=== PATIENT | female | born 1960 | race Caucasian/White ===

== ENCOUNTER 2019-11-19 12:02 | Inpatient (IN) ==
[2019-11-19 13:02] LABS: BASO# 0.05 X1000 (0.0-0.2); BASO% 0.3 % (0.0-0.8); EOS% 1.9 % (0.0-10.0); HEMATOCRIT 36.8 % (37.0-47.0); HEMOGLOBIN 11.4 g/dL (12.0-16.0); IMM GRAN# 0.09 X1000 (0.0-0.04); IMM GRAN% 0.6 % (0.0-0.5); LYMPH# 4.32 X1000 (1.2-3.4); LYMPH% 27.8 % (20.5-51.1); MCH 28.9 PG (27-31); MCV 93.2 FL (81-99); MONO# 1.24 X1000 (0.11-0.59); MPV 10.2 FL (7.4-10.4); NEUT# 9.56 X1000 (1.4-6.5); NEUT% 61.4 % (42.2-75.2); PLT 443 X1000 (130-400); RBC 3.95 XMIL (4.2-5.4); RDW 13.2 % (11.5-14.5); WBC 15.56 X1000 (4.8-10.8)
--- NOTE | 2019-11-19 13:16 | Diag Imaging Result Doc PS360 ---
EXAM: CHEST-2 VIEWS HISTORY: shortness of breath TECHNIQUE: Two views COMPARISON: 10/11/2014 FINDINGS: The lungs are well expanded. The heart is not enlarged. The vessels are not distended. There are no infiltrates. No pleural effusions. Right lower lobe granuloma. Coronary artery stent. IMPRESSION: No acute abnormality. Electronically signed by Jamil Villarreal 11/19/2019 1:13 PM
[2019-11-19 13:45] LABS: ALB/GLOB RATIO 1.3; ALBUMIN 4.3 g/dL (3.5-5.0); CALCIUM 9.5 mg/dL (8.8-10.2); POTASSIUM 5.1 mmol/L (3.5-5.1); TOTAL BILIRUBIN 0.19 mg/dL (0.20-1.00); TOTAL PROTEIN 7.5 g/dL (6.3-8.3)
[2019-11-19] MEDS ORDERED: NS 1,000 ML IV ONE ×2 (15:38→16:42)
[2019-11-19 15:58] LABS: URINE SOURCE CLEAN CATCH
[2019-11-19 16:03] LABS: BILIRUBIN URINE NEGATIVE (NEGATIVE); BLOOD URINE NEGATIVE (NEGATIVE); COLOR YELLOW; GLUCOSE URINE >1000 mg/dL (NEGATIVE); KETONE URINE NEGATIVE (NEGATIVE); LEUKOCYTES URINE NEGATIVE (NEGATIVE); NITRITE URINE NEGATIVE (NEGATIVE); PH URINE 5.5; PROTEIN URINE TRACE mg/dL (NEGATIVE); SP GRAVITY URINE 1.018; TURBIDITY URINE CLEAR (CLEAR); UROBILINOGEN URINE NORMAL (NORMAL)
[2019-11-19 16:05] LABS: UR EPITHELIAL CELLS <10 /HPF (<10); URINE BACTERIA NEGATIVE /HPF; URINE RBC <10 /HPF (<10); URINE WBC <10 /HPF (<10)
--- NOTE | 2019-11-19 16:27 | PROVIDER DOCUMENTATION ---
This chart was entered by Netta Leigh Scribe, acting as scribe for Todd Leon DO. HPI-General Adult - General Chief Complaint: Shortness of Breath Stated Complaint: SOB, SHOULDER/BACK PAIN Time Seen by Provider: 11/19/19 12:38 Source: patient, family (daughter and ) Allergies/Adverse Reactions: Patient Allergies Allergy/AdvReac Type Severity Reaction Status Date / Time acetaminophen [From Lortab] Allergy NAUSEA/VOMI Verified 11/19/19 13:12 TING hydrocodone [From Lortab] Allergy NAUSEA/VOMI Verified 11/19/19 13:12 TING methylprednisolone Allergy NAUSEA/VOMI Verified 11/19/19 13:12 [From Medrol] TING Home Medications: Home Medication List Medication Instructions Recorded Confirmed Last Taken Type Alprazolam [Xanax] 0.25 mg PO PRN PRN 11/19/19 11/19/19 Unknown History Carvedilol [Coreg] 25 mg PO QHS 11/19/19 11/19/19 Unknown History Duloxetine [Cymbalta] 60 mg PO BID 11/19/19 11/19/19 Unknown History Fexofenadine [Chiquis] 180 mg PO DAILY 11/19/19 11/19/19 Unknown History LISINOpril [Prinivil] 5 mg PO DAILY 11/19/19 11/19/19 Unknown History Meclizine HCl 25 mg PO DAILY 11/19/19 11/19/19 Unknown History Pantoprazole Sodium [Protonix] 20 mg PO DAILY 11/19/19 11/19/19 Unknown History Rosuvastatin Calcium [Crestor] 5 mg PO DAILY 11/19/19 11/19/19 Unknown History Sitagliptin Phos/Metformin HCl 1 tab PO BID 11/19/19 11/19/19 Unknown History [Janumet 50-1,000 mg Tablet] Tramadol [Ultram] 50 mg PO PRN PRN 11/19/19 11/19/19 Unknown History Zolpidem [Ambien] 5 mg PO PRN PRN 11/19/19 11/19/19 Unknown History - History of Present Illness -Gen Adult Nature of Presenting Problems: Pt is a 59 yowf with c/o of SOB and back pain between her shoulder blades that started last Thursday. Pt states she went to walk-in clinic on Thursday for "crud" and then to PCP on and symptoms have not gotten better. Pt states she cannot hardly do anything without feeling SOB. Pt is alert and nontoxic in appearance. Location of Pain/Injury: reports: chest Pain Radiation: reports: no radiation, back (pt states pain comes straight thru to between her shoulder blades) Quality of Pain: reports: aching, tightness Severity: reports: moderate Onset/Duration: reports: gradual, last week Timing: reports: still present, constant, getting worse Context/Activities at Onset: reports: light activity Modifying Factors: improves with: lying down. worse with: movement Associated Symptoms: reports: back/neck pain, chest pain, shortness of breath, weakness. denies: cough, dizziness, fever/chills, syncope Similar Symptoms Previously?: Yes (Pt states that she has had these symptoms before ) Recently seen or treated by another doctor?: Yes (walkin clinic Thursday, PCP ) Review of Systems - Adult - REVIEW OF SYSTEMS - ADULT Constitutional: denies: chills, fever Eyes: reports: no symptoms reported Ears, Nose, Mouth & Throat: reports: no symptoms reported Cardiovascular: reports: see HPI, chest pain. denies: syncope Respiratory: reports: see HPI, shortness of breath. denies: cough, wheezing Gastrointestinal: reports: no symptoms reported Genitourinary: reports: no symptoms reported Musculoskeletal: reports: see HPI, back pain (between shoulder blades) Integumentary: reports: no symptoms reported Neurological: reports: no symptoms reported Psychiatric: reports: no symptoms reported Endocrine: reports: no symptoms reported Hematologic/Lymphatic: reports: no symptoms reported Allergic/Immunologic: reports: no symptoms reported All Other Systems: Reviewed and Negative Past History - Adult - PAST MEDICAL HISTORY-ADULT Review of Records: reports: Old Records Reviewed, Nursing Assessment Review, Med ications Reviewed, Social history reviewed & non-contributory. Major Childhood Illnesses: reports: denies history Cardiovascular: reports: HTN, hyperlipidemia, [place] Respiratory: reports: denies history Gastrointestinal: reports: denies history Genitourinary: reports: kidney disease Musculoskeletal: reports: denies history Neurological: reports: denies history Endocrine/Immune: reports: denies history, Diabetes Other Conditions: reports: denies history - IMMUNIZATION STATUS Childhood Immunizations: See Nurse Assessment Flu Vaccine: See Nurse Assessment - FAMILY HISTORY Family History: reviewed, not pertinent - SOCIAL HISTORY Smoking: non-smoker Substance Use: denies Living Situation: family () Physical Exam-General - PHYSICAL EXAM-ADULT Initial Vital Signs Reviewed: Yes (HR 104; Temp 97.2; O2 89L RA) - CONSTITUTIONAL General Appearance: appears well, alert, no apparent distress, thin - EYES Eyes: PERRL/EOMI, pink conjunctivae - HEAD, EARS, NOSE, MOUTH & THROAT HENMT: normocephalic/atraumatic, moist mucous membranes, normal ENT inspection, TMs normal, pharynx normal - NECK Neck: non-tender, full range of motion, supple, normal inspection - RESPIRATORY Respiratory: chest non-tender, lungs clear, normal breath sounds, no pleuratic chest pain, no respiratory distress, no accessory muscle use. negative: wheezing - CARDIOVASCULAR Cardiovascular: normal peripheral pulses, tachycardia - GASTROINTESTINAL (ABDOMEN) Abdominal Exam: normal bowel sounds, non tender, soft, no organomegaly, no pulsatile mass - LYMPHATIC Lymphatic: no adenopathy - MUSCULOSKELETAL Back Exam: normal inspection, no CVA tenderness, no vertebral tenderness Extremity: normal range of motion, non-tender, normal gait, normal inspection, no pedal edema, no calf tenderness - SKIN Integumentary: normal color, normal turgor, warm/dry - NEUROLOGIC Neurologic: grossly normal - PSYCHIATRIC Psych/Mental Status: normal mood/affect, normal thought content, normal thought process, oriented x 3 Progress - PLAN OF CARE/RESULTS Progress/Plan/Lab Results: Vital Signs - 8 hr 11/19/19 12:13 Temperature 97.2 F L Pulse Rate 104 H Respiratory Rate 22 Blood Pressure 71/52 O2 Sat by Pulse Oximetry 89 L Laboratory Results - last 24 hr 11/19/19 12:30 WBC 15.56 H RBC 3.95 L Hgb 11.4 L Hct 36.8 L MCV 93.2 MCH 28.9 MCHC 31.0 L RDW Std Deviation 13.2 Plt Count 443 H MPV 10.2 Immature Gran % (Auto) 0.6 H Neut % (Auto) 61.4 Lymph % (Auto) 27.8 [place] % (Auto) 8.0 Eos % (Auto) 1.9 Baso % (Auto) 0.3 Immature Gran # (Auto) 0.09 H Neut # (Auto) 9.56 H Lymph # (Auto) 4.32 H Anson # (Auto) 1.24 H Eos # (Auto) 0.30 Baso # (Auto) 0.05 Orders Category Date Time Status Cardiac Monitoring DIRECTED Care 11/19/19 12:57 Active IV Insertion ORDERED Care 11/19/19 12:57 Active Notify MD of + Sepsis Screen NOW Care 11/19/19 12:57 Active Notify Physician As Ordered Care 11/19/19 12:57 Active CHEST-2 VIEWS [RAD] Stat Exams 11/19/19 12:46 Taken BLOOD CULTURE [BLDCUL] Stat Lab 11/19/19 12:57 Uncollected CBC WITH ELECTRONIC DIFF [HEME] Stat Lab 11/19/19 12:30 Completed CK PROFILE [SP CHEM] Stat Lab 11/19/19 12:30 Received COMPREHENSIVE METABOLIC PANEL [CHEM] Stat Lab 11/19/19 12:30 Received LACTATE, PLASMA [CHEM] Q3H Lab 11/19/19 13:00 Uncollected LACTATE, PLASMA [CHEM] Q3H Lab 11/19/19 16:00 Uncollected LACTATE, PLASMA [CHEM] Q3H Lab 11/19/19 19:00 Uncollected PRO B-NATRIURETIC PEPTIDE Stat Lab 11/19/19 12:30 Received TROPONIN T HIGH SENSITIVITY Stat Lab 11/19/19 12:30 Received URINALYSIS W/POSS RFLX CULT [URINALYSIS] Stat Lab 11/19/19 12:57 Uncollected Oxygen Device Stat Oth 11/19/19 12:57 Active Result Diagrams: 11/19/19 12:30 11/19/19 12:30 - REASSESSMENT Reassessment #1 Time Reassessed: 16:08 Status: unchanged (heart score =5) Reassessment #2 Time Reassessed: 16:09 Status: unchanged Reassessment Comment: at bedside discussing POC - EKG 1 Time of EKG reading by physician:: 12:30 EKG Read and Signed by:: Todd Leon EKG Interpretation (*Must complete 3 of following elements*): Abnormal Rate: 101 Rhythm: Sinus tachycardia [place]: normal Comments: Cannot rule out Anterior infarct, age undetermined - XRAY 1 XRAY Study: Chest Impression: See EMR Report (EXAM: CHEST-2 VIEWS HISTORY: shortness of breath TECHNIQUE: Two views COMPARISON: 10/11/2014 FINDINGS: The lungs are well expanded. The heart is not enlarged. The vessels are not distended. There are no infiltrates. No pleural effusions. Right lower lobe granuloma. Coronary artery stent. IMPRESSION: No acute abnormality. Electronically signed by Jamil Villarreal 11/19/2019 1:13 PM 11/19/19 1313 Interpreting Physician: Jamil Villarreal MD Dictated Date/Time: 11/19/19 1313 cc: Todd Leon DO; Elisa Retana) - CONSULTS/PCP/HOSPITALIST Notification #1 *Consult/PCP/Hospitalist*: Radha Time Discussed: 16:15 Consult Disposition: Admit (Dr. Waggoner) Departure - Departure Date of Disposition Decision: 11/19/19 Time of Disposition Decision: 16:27 DIAGNOSIS: Exertional shortness of breath Disposition: ADMITTED INPATIENT 09 Certified Medical Emergency: Emergent Condition: Fair Referrals and Follow-Ups: Elisa Retana [Primary Care Provider] - - Critical Care Note This patient required my direct & personal management of CC.: No Attestation - Physician/ MOSHE Attestation Patient care was provided by Advanced Practice Provider:: No The physician spent face to face time with patient:: Yes Advanced Practice Provider documentation review:: Supervising physician onsite and consulted in the evaluation and care of this patient. The physician did have a face to face encounter with the patient. This chart was documented by the indicated scribe, (Netta Leigh, Chintan) and accurately reflects the services I performed and decisions made by , Todd Leon DO, as attested by the provider's signature.
[2019-11-19] MEDS ORDERED: LOVENOX 1 MG/KG SUBQ ONE (16:41)
[2019-11-19] MEDS ORDERED: ZITHROMAX 500 MG/NS 500 MG/250 ML IVPB IV ONE (16:44)
[2019-11-19] MEDS ORDERED: ROCEPHIN 1 GM in NS 50 ML IV SCH (16:45)
[2019-11-19] MEDS ORDERED: LOVENOX SUBQ ONE (17:00)
[2019-11-19 17:03] LABS: ALLEN TEST YES; BE -10.5 mmoll (-3.0-3.0); BLOOD TYPE ARTERIAL; HCO3-(ACT) 16.7 mmoll (20.0-26.0); METHB 1.1 % (0.0-1.5); O2(CT) 13.6 mL/dL (15.0-23.0); O2HB 96.9 % (95.0-99.0); PCO2(98.6) 35 mmHg (35-45); PO2(98.6) 124 mmHg (60-100); SAMPLE BLOOD; SAO2 99.2 % (95.0-100.0); THB 9.8 g/dL (11.5-17.4); pH(98.6) 7.26 (7.35-7.45)
[2019-11-19 17:10] LABS: MODALITY CANNULA
[2019-11-19] MEDS ORDERED: NEO-SYNEPHRINE 50 MG in NS 250 ML IV SCH (18:17)
[2019-11-19] MEDS ORDERED: ZOFRAN IV PRN (18:17)
[2019-11-19] MEDS: NS 1,000 ML IV SCH ×3 (18:24→23:33)
--- NOTE | 2019-11-19 19:22 | Diag Imaging Result Doc PS360 ---
EXAM: LUNG SCAN / VQ HISTORY: r/o PE TECHNIQUE: Nuclear medicine ventilation/perfusion lung scan COMPARISON: X-ray performed earlier FINDINGS: 40.4 mCi DTPA given for the ventilation images. 5.8 mCi MAA given intravenously for the perfusion images. No wedge shaped perfusion defects. No ventilation perfusion mismatches. IMPRESSION: No evidence of a pulmonary embolus. Electronically signed by Jamil Villarreal 11/19/2019 7:19 PM
[2019-11-19] MEDS: CRESTOR PO SCH (20:27)
[2019-11-19] MEDS: CYMBALTA PO SCH (20:28)
[2019-11-19] MEDS: SODIUM BICARBONATE 8.4% 150 MEQ in STERILE WATER INJ. 1,000 ML IV SCH (20:28)
--- NOTE | 2019-11-19 20:42 | HISTORY AND PHYSICAL ---
PRIMARY CARE PROVIDER: Dr. Elisa Retana. CHIEF COMPLAINT: Shortness of breath and pain in between shoulder blades. HISTORY OF PRESENT ILLNESS: Ms. Esparza is a pleasant 59-year-old female who carries a past medical history most notable for coronary artery disease status post 2 MIs with 7 stents, diabetes mellitus, hypertension, hyperlipidemia, and GERD with a strong family history of heart disease and a mother with a clotting disorder. She came to the ED complaining of a couple weeks of shortness of breath that continued to worsen, especially upon exertion. She has to stop and after rest short distances. It is not really associated with any chest-type pain, but she did start noticing a sharp pain between her shoulder blades. She did report that she has had some congestion going on for about a month. She had been treated with some antibiotics and some steroids last week and had a fever of 101. She had been to the walk-in clinic as well as her primary care provider. She had been diagnosed with some fluid in her ears and was having some issues with dizziness and was given some meclizine, an antibiotic and some steroids. She had 2 falls, 1 last Thursday and 1 on Thursday. She reported this morning she got up, and she ate some cardoza, and while it was going down, she just got this sensation that would not go away. It was hard for her to describe. It was not that it really got stuck or hung, or that she could really describe as chest-type pain, but she did have to go lie down to get relief from it, and at the urging of her family she was brought in to the emergency room, where she was found to be hypoxic with O2 saturation of 89%. She was hypotensive, 70 over 50s, and tachycardic. Her chest x-ray was completely negative. Her white count was 15; however, she has been on steroids. Her creatinine is 3, and in August, it was 1.5. Urinalysis is clean. Acetone level is negative. We are going to rule her out for PE and continue to trend her cardiac enzymes. They are currently negative. We will go ahead and give her 1 dose of full-dose Lovenox and prophylactically cover her with antibiotics. She is getting 1 fluid bolus in the ED. We will go ahead and give her a second liter of fluid and continue IV fluids overnight as well as check a CT of her chest to rule out any pneumonia, and we are awaiting her ABG. We will monitor in the ICU. She has continued to have low blood pressures while she has been in the ED. She has had some improvement with her bolus of IV fluids. We will continue with further management and treatment. PAST MEDICAL HISTORY: Coronary artery disease status post 2 MIs with 7 stents, diabetes mellitus, hypertension, hyperlipidemia, GERD. PAST SURGICAL HISTORY: Right carpal tunnel, tubal ligation, hysterectomy, breast reduction. FAMILY HISTORY: Father of [place]. Mother had respiratory arrest and cardiac arrest secondary to a clot. I believe she had previous clots as well and was on blood thinners. ALLERGIES: To acetaminophen, hydrocodone and Medrol Dosepak. HOME MEDICATIONS: 1. Xanax 0.25 mg p.o. p.r.n. anxiety. 2. Coreg 25 mg p.o. at bedtime. 3. Cymbalta 60 mg p.o. b.i.d. 4. Chiquis 180 mg p.o. daily. 5. Prinivil 5 mg p.o. daily. 6. Meclizine 25 mg p.o. daily. 7. Protonix 20 mg p.o. daily. 8. Crestor 5 mg p.o. daily. 9. Janumet-metformin combo 50-1000 mg 1 tab p.o. b.i.d. 10. Ultram 50 mg p.o. p.r.n. 11. Ambien 5 mg p.o. p.r.n. sleep. REVIEW OF SYSTEMS: Twelve-point review of systems completely negative except for those mentioned above in HPI. There is no headache. No abdominal pain, nausea, vomiting, or diarrhea. PHYSICAL EXAMINATION: VITAL SIGNS: Temperature is 97.2, heart rate 103, respirations 20, blood pressure 197/56, O2 currently 100% on 2 L nasal cannula. GENERAL: Ms. Esparza is a pleasant 59-year-old female who is sitting up in the bed in no acute distress. HEENT: Atraumatic, normocephalic. PERRL. Mucous membranes are extremely dry. NECK: Supple. Trachea midline. CARDIOVASCULAR: S1, S2 appreciated. No murmurs, gallops, or rubs noted. RESPIRATORY: Lung sounds clear bilaterally. CARDIOVASCULAR: S1, S2 appreciated. No murmurs, gallops, or rubs noted. Bilateral pedal pulses are palpable. Has good capillary refill. SKIN: Dry. Poor turgor. NEUROLOGIC: No focal deficits noted. GI: Soft, nontender, nondistended. Positive bowel sounds in 4 quadrants. DIAGNOSTIC DATA: Chest x-ray: No acute abnormality EKG is pending. LABORATORY DATA: White count is 15, hemoglobin and hematocrit 11 and 36, platelet count is 443. Sodium 135, potassium 5.1, carbon dioxide 17, anion gap 18, BUN 60, creatinine 3.0, blood glucose 164, phosphorus 4.3. Plasma lactate 1.4. Troponin 14, CK 34. ProBNP is 204. Albumin 4.3. Urine is negative for bacteria, negative for leukocytes, negative for nitrites, greater than 1000 glucose, trace protein. Tox screen negative for acetone. ASSESSMENT AND PLAN: 1. Hypoxia upon arrival, improved with supplemental O2. 2. Dyspnea on exertion , currently ruling out pulmonary embolism as well as pneumonia. I will do a V/Q scan secondary to her kidney function. I will do a CT of the chest. Her chest x-ray did not show anything acute. She was recently being treated for, I believe, upper respiratory issues and congestion with antibiotics and steroids, so we will treat prophylactically for pneumonia until proven otherwise, and continue with supplemental O2. We will go ahead and give her 1 full dose of Lovenox. Given her kidney function today, that should only be every 24 hours. Currently pending an arterial blood gas. 3. Atypical-type chest pain this morning. We will go ahead and rule out with cardiac enzymes. She does have a strong history of coronary artery disease status post myocardial infarctions with 7 stents. Again, she has been covered with full-dose Lovenox. We will obtain an echocardiogram in the morning. 4. Hypotension, somewhat improved with her first fluid bolus. We will continue with her second fluid bolus. 5. Acute kidney injury on chronic kidney disease, possibly secondary to dehydration. She is getting a 2 L bolus now, and we will continue to hydrate her overnight. We will recheck her kidney function in the a.m. We will hold her lisinopril and her combination Janumet. 6. Triple acidosis (Metabolic, Respiratory, Anion-gap). Bicarb drip started will repeat ABG in am. 7. Diabetes mellitus with hyperglycemia. We will place her on sliding scale with pattern blood sugars. 8. Leukocytosis. Unsure if this is from recent steroids or actual infection; however she will be treated prophylactically until proven otherwise. 9. Hyperlipidemia. Continue statin. We will check a lipid profile. 10. Gastroesophageal reflux disease. Continue proton pump inhibitor. 11. Further recommendations to follow physician evaluation, laboratory and diagnostic data. Dictated by FERNANDO Ruiz for Pb Sherman MD cc: Elisa Retana MD Patient with apparent hypoxia on presentation although sats looked ok at the time of my exam. also with hypotension which appears to be improving with fluids. good capillary refill on exam. will rule out pneumonia and PTE, give single dose of lovenox until that is determined, and continue IVF resuscitation. MTDD
[2019-11-20] MEDS: PRILOSEC PO SCH (06:00)
[2019-11-20] MEDS: NS 1,000 ML IV SCH ×3 (06:03→20:55)
[2019-11-20] MEDS: SODIUM BICARBONATE 8.4% 150 MEQ in STERILE WATER INJ. 1,000 ML IV SCH (06:03)
[2019-11-20 06:22] LABS: ALLEN TEST YES; BE -0.9 mmoll (-3.0-3.0); BLOOD TYPE ARTERIAL; HCO3-(ACT) 24.3 mmoll (20.0-26.0); O2(CT) 12.7 mL/dL (15.0-23.0); PCO2(98.6) 35 mmHg (35-45); PO2(98.6) 85 mmHg (60-100); SAMPLE BLOOD; SAO2 100.3 % (95.0-100.0); THB 9.1 g/dL (11.5-17.4); pH(98.6) 7.43 (7.35-7.45)
[2019-11-20 06:23] LABS: MODALITY ROOM AIR
[2019-11-20 07:13] LABS: BASO# 0.03 X1000 (0.0-0.2); BASO% 0.3 % (0.0-0.8); EOS# 0.24 X1000 (0.0-0.7); EOS% 2.8 % (0.0-10.0); HEMATOCRIT 32.1 % (37.0-47.0); HEMOGLOBIN 9.8 g/dL (12.0-16.0); IMM GRAN# 0.05 X1000 (0.0-0.04); IMM GRAN% 0.6 % (0.0-0.5); LYMPH# 3.77 X1000 (1.2-3.4); LYMPH% 43.4 % (20.5-51.1); MCH 28.7 PG (27-31); MCHC 30.5 g/dL (33-37); MCV 94.1 FL (81-99); MONO# 0.88 X1000 (0.11-0.59); MONO% 10.1 % (1.7-9.3); MPV 9.8 FL (7.4-10.4); NEUT# 3.72 X1000 (1.4-6.5); NEUT% 42.8 % (42.2-75.2); PLT 305 X1000 (130-400); RBC 3.41 XMIL (4.2-5.4); RDW 13.2 % (11.5-14.5); WBC 8.69 X1000 (4.8-10.8)
--- NOTE | 2019-11-20 07:15 | Diag Imaging Result Doc PS360 ---
EXAM: CHEST-PORTABLE - 11/20/2019 HISTORY: follow up TECHNIQUE: Portable chest COMPARISON: 11/19/2019 FINDINGS: Heart size is normal. Inspiration is mildly shallow. There is stable right lower lobe granuloma from old granulomatous disease. The lungs otherwise appear clear. There is no pleural effusion or pneumothorax identified. IMPRESSION: Mildly shallow inspiration. No other evidence of acute disease. Electronically signed by Han Gonzalez 11/20/2019 7:12 AM
[2019-11-20 07:27] LABS: AGAP 12; ALB/GLOB RATIO 1.3; ALBUMIN 3.4 g/dL (3.5-5.0); ALKALINE PHOSPHATASE 101 U/L (32-104); BUN 36 mg/dL (8-22); CALCIUM 8.1 mg/dL (8.8-10.2); CHLORIDE 109 mmol/L (98-107); COSMO 297; CREATININE 1.7 mg/dL (0.5-0.9); ESTIMATED GFR 31; GLUCOSE 106 mg/dL (70-104); GOT 10 U/L (10-30); GPT 8 U/L (10-36); POTASSIUM 4.2 mmol/L (3.5-5.1); SODIUM 145 mmol/L (136-145); TCO2 24 mmol/L (25-35); TOTAL BILIRUBIN < 0.15 mg/dL (0.20-1.00); TOTAL PROTEIN 6.1 g/dL (6.3-8.3)
[2019-11-20] MEDS: CYMBALTA PO SCH ×2 (08:59→20:56)
--- NOTE | 2019-11-20 09:22 | Diag Imaging Result Doc PS360 ---
EXAM: CT THORAX W/O CONTRAST - 11/19/2019 HISTORY: hypoxia r/o pneumonia TECHNIQUE: CT thorax without contrast. No contrast administered per request the referring provider. COMPARISON: 11/19/2019 chest radiograph FINDINGS: There is a right lower lobe calcified granuloma and there are calcified right hilar mediastinal lymph nodes, from old granulomatous disease. There is mild dependent atelectasis. There is no consolidation, pulmonary edema, pleural effusion, or pneumothorax identified. IMPRESSION: Mild dependent atelectasis. No evidence of pneumonia. The on-call radiologist provided preliminary results at 2:02 AM on 11/20/2019. This exam was performed using automated exposure control, adjustment of mA or kV according to patient size, and/or use of iterative reconstruction technique. Electronically signed by Han Gonzalez 11/20/2019 9:20 AM
--- NOTE | 2019-11-20 14:59 | PROGRESS NOTE ---
DATE: 11/20/2019 INTERVAL HISTORY: Patient significantly improved. Still feeling a little weak but not as much as previously. Afebrile overnight, blood pressure improved with fluids. No new complaints. No acute events overnight. REVIEW OF SYSTEMS: Twelve point review of systems negative except as per interval history. LABS: WBC 8.69, hemoglobin 9.8, hematocrit 32.1, platelets 305,000. ABG with pH 7.43, pCO2 35, PO2 85 on room air. Sodium 145, potassium 4.2, bicarb 24, BUN 36, creatinine 1.7, glucose 106. Cultures no growth to date. VITALS: T-max 98.4 degrees, pulse 112, respirations 13, blood pressure 117/73, O2 saturation 98% room air. PHYSICAL EXAM: General: No acute distress. Vitals as above. HEENT: Normocephalic, atraumatic. Mucous membranes still little dry but improved from previous. Cardiovascular: Minimally tachycardic but regular, no murmurs noted. Pulmonary: Clear to auscultation bilaterally. No wheezing, rales, rhonchi. Abdomen: Soft, nontender, nondistended, bowel sounds positive. Extremities: Peripheral pulses intact. No clubbing, cyanosis or edema. Neurologic: Cranial nerves grossly intact. No focal deficits identified, mild global weakness. Psychiatric: Normal mood and affect. Awake, alert, oriented x3. ASSESSMENT AND PLAN: 1. Hypotension. Initial concern for sepsis or pulmonary embolism but no source of infection found. V/Q scan negative. CT of the chest unremarkable. Urinalysis unremarkable, cultures negative. Leukocytosis improved with hydration overnight. Blood pressure also improved with fluids. Suspect significant dehydration rather than sepsis or embolism at this point. Was initially on bicarb containing fluids because of acidosis but now changed over to normal saline which will continue for tonight. Will get physical therapy to work with her in the morning see how she does. If she is not having any further significant weakness or dyspnea then may be able to be discharged tomorrow. If she still has dyspnea with exertion tomorrow then may need stress test and cardiac eval. 2. Acute kidney injury on chronic kidney disease 3. Initial creatinine 3.0 improved to 1.7 today. Appears to be improving rapidly with fluids, not quite to baseline approximately 1.4 but getting close. Continue fluids 1 more day and monitor. 3. Hypotension resolved with fluids as above. 4. Hypertension, holding patient's home Coreg and lisinopril in the setting of hypertension on admission. 5. Hyperlipidemia. Continue home Crestor. 6. Gastroesophageal reflux disease. Continue home PPI. 7. Diabetes, glucose only minimally elevated so far. Continue to monitor and will start sliding scale if need be. 8. Hyponatremia resolved with fluids overnight. 9. Dyspnea on exertion. Suspect patient was profoundly dehydrated interpreting weakness as shortness of breath. No shortness of breath currently, no cough. As above physical therapy evaluation in the morning to see if it is still an issue if it is all resolved with hydration. 10. Disposition. Will move out of ICU today given improvement in blood pressure. Physical therapy in the morning to see if she may need cardiac eval or not.
--- NOTE | 2019-11-20 17:29 | ECHO REPORT ---
ORDER DATE: 11/20/2019 INDICATION: Dyspnea. Question of congestive failure. M-MODE MEASUREMENTS: Left ventricle end diastole: 3.6. Left ventricle end systole: 2.6. Posterior wall: 0.9. Interventricular septum: 0.9. Left atrium: 2.6. Aortic diameter: 2.7. SUMMARY OF 2-DIMENSIONAL IMAGIN. Left ventricular function is normal. Ejection fraction is estimated at 56%. There is no wall motion abnormality. 2. The atria appear to be normal. 3. The aortic valve is normal. Color flow mapping unremarkable. 4. The right ventricle appears to be normal. 5. The aortic valve shows mild degree of regurgitation. The valve has three cusps. There is no stenosis. 6. The pulmonic valve is normal. Color flow mapping unremarkable. 7. The mitral valve shows no significant regurgitation. 8. The pulse wave Doppler of mitral inflow shows fusion of the E and the A wave. I cannot really tell what is the E/A ratio. That is because the patient is tachycardic. 9. The tissue Doppler of septal and lateral mitral annulus suggested the e prime velocity is 8 cm. Diastolic function is probably normal. 10.Pulmonary pressure appears to be within normal limits. 11.There is no pericardial effusion, mass, and no thrombus. Clinical correlation is recommended. cc: Addi Anglin MD
[2019-11-20] MEDS ORDERED: ZITHROMAX 500 MG/NS 500 MG/250 ML IVPB IV SCH (20:00)
[2019-11-20] MEDS: CRESTOR PO SCH (20:56)
[2019-11-21] MEDS: PRILOSEC PO SCH (06:06)
--- NOTE | 2019-11-21 08:28 | EKG Report ---
Test Performed on : 11/19/2019 12:06:49 PM Test Reason : SOB/CP Blood Pressure : / mmHG Vent. Rate : 101 BPM Atrial Rate : 101 BPM P-R Int : 136 ms QRS Dur : 062 ms QT Int : 324 ms P-R-T Axes : 051 -22 052 degrees QTc Int : 420 ms Sinus tachycardia. Cannot rule out Anterior infarct , age undetermined Abnormal ECG When compared with ECG of 11-OCT-2014 14:26, aberrant conduction. is no longer present Unconfirmed Result
[2019-11-21] MEDS: NS 1,000 ML IV SCH (09:40)
[2019-11-21] MEDS: CYMBALTA PO SCH (09:40)
[2019-11-21 15:30] VITALS: BP 149/79
--- NOTE | 2019-11-22 10:37 | DISCHARGE SUMMARY ---
ADMISSION DATE: 11/19/2019 DISCHARGE DATE: 11/21/2019 DISCHARGE DIAGNOSES: 1. Acute kidney injury with hypotension. 2. History of hypertension. 3. History of coronary artery disease status post numerous percutaneous coronary interventions. 4. Hyperlipidemia. 5. Type 2 diabetes. HISTORY/HOSPITAL COURSE: Briefly, this is a 59-year-old female with CAD status post PCI x7 and 2 MIs, who came in with exertional dyspnea. There was no chest pain. She reportedly had a fever. She has been on antibiotics. Anyway she has kind of been sick for a while with flu-like syndrome. She came in hypotensive, sats of 89%. She is tachycardic I think criteria were made for sepsis but she did not really have an infection per se or at least not a current infection. She got fluid and she improved. She had a triple acidosis which also improved with fluid. V/Q scan was negative for PE. Chest CT showed mild dependent atelectasis. Her initial creatinine was high at a level of 3 and went down to 1.7 the day before discharge. It was not on analyze day of discharge. Her echocardiogram looked good. EF 55%. No wall motion abnormalities. Diastolic function was felt to be normal so really looked okay. She had no chest pain and her shortness of breath resolved itself, so she was felt stable for discharge. DISCHARGE MEDICATIONS: Coreg 25 at bedtime, Chiquis 180 daily, Ambien 5 p.r.n., Crestor 5 daily, Cymbalta 60 b.i.d., sitagliptin/ metformin 50/g b.i.d. She was told to hold the metformin until seen by her PCP just because of her renal insufficiency. Meclizine 25 daily, lisinopril 5 daily, Protonix 20 daily, Ultram p.r.n., Xanax 0.25 p.r.n. DISCHARGE CONDITION: Stable. She will need repeat labs in 1 week, repeat basic to analyze her kidney function. cc: MD Elisa Grier MD
== END 2019-11-21 16:11 | disposition home or self-care (01) | DRG 683 ==
LOC: ED 12:02 → SUATTDRO 17:22 → ICU 17:22 → 3N 11-20 14:39
PROVIDERS: ATTEND Internal Medicine